=== PATIENT | female | born 1985 | race African-American/Black ===

== ENCOUNTER 2017-03-10 16:01 | Emergency (ER) | payer MEDICAID ==
[~2017-03-10] VITALS: Ht 162.6 cm; Wt 72.0 kg
[~2017-03-10 16:01] MED LIST: IBUP600 PO; IBUP800T23 PO; LORTA5 PO; ORPH100T PO
[2017-03-10 16:02] VITALS: BP 123/65; PULSE 69; RESP 20; TEMP 97.8; O2SAT 99
[2017-03-10] MEDS ORDERED: IBUP800T23 PO (16:27)
[2017-03-10] MEDS ORDERED: ZOFR4TAB PO (16:27)
[2017-03-10] MEDS ORDERED: CLIN1CAP6 PO (16:27)
[2017-03-10] MEDS ORDERED: ONDANSETRON ODT 4 MG TAB PO ONE (16:30)
[2017-03-10] MEDS ORDERED: KETOROLAC TROMETHAMINE 60 MG/2 ML (IM) VIAL IM ONE (16:30)
--- NOTE | 2017-03-10 16:32 | PD ---
HPI Chief Complaint: GI Complaint Time Seen by Provider: 16:20 Travel History International Travel<30 days: No Contact w/Intl Traveler<30days: No Traveled to known affect area: No History of Present Illness HPI 31-year-old female presents for evaluation of nausea and vomiting secondary to recent prescription medication. She's had dental pain for the past month. 3 days ago she was seen at an outside emergency room and prescribed doxycycline and tramadol which she has been taking together. She is experiencing nausea and vomiting whenever she takes these medications. She has avoided taking them today and she feels better, still mild nausea. No fevers, chills, abdominal pain, diarrhea. Last missed her period 5 days ago. No other complaints. PFSH Past Medical History Anemia: Yes Asthma: Yes Diminished Hearing: No Sickle Cell Disease: Yes (SICKLE CELL TRAIT) ?: Not Menopausal: No : 2 Para: 0 Miscarriage: 1 : 1 Social History Alcohol Use: No Tobacco Use: Yes (10/23 PPD) Substance Use: No Allergies-Medications (Allergen,Severity, Reaction): Coded Allergies: Penicillin (Verified Allergy, Severe, Hives, 03/10/17) Reported Meds & Prescriptions Reported Meds & Active Scripts Active Clindamycin (Clindamycin HCl) 300 Mg Cap 300 Mg PO TID Ibuprofen 800 Mg Tab 800 Mg PO Q6HR PRN Zofran (Ondansetron HCl) 4 Mg Tab 4 Mg PO Q6HR PRN Norflex (Orphenadrine Citrate) 100 Mg Silvestre 100 Mg PO BID [place] 5-325 mg (Hydrocodone-Acetaminophen 5-325 mg) 1 Tab 1 Tab PO Q6H PRN Motrin 600 Mg Tab (Ibuprofen) 600 Mg Tab 600 Mg PO Q6H PRN Ibuprofen 800 Mg Tab 800 Mg PO Q6H PRN Review of Systems Except as stated in HPI: all other systems reviewed are Neg Physical Exam Narrative GENERAL: Well-nourished female in no acute distress SKIN: Warm and dry. HEAD: Atraumatic. Normocephalic. EYES: Pupils equal and round. No scleral icterus. No injection or drainage. ENT: No nasal bleeding or discharge. Mucous membranes pink and moist. Dental decay noted to the left maxillary second molar. Tender to palpation. No gingival edema or facial edema. NECK: Trachea midline. No JVD. No lymphadenopathy. CARDIOVASCULAR: Regular rate and rhythm. No murmur appreciated. RESPIRATORY: No accessory muscle use. Clear to auscultation. Breath sounds equal bilaterally. Data Data Last Documented VS Vital Signs Date Time Temp Pulse Resp B/P Pulse Ox O2 Delivery O2 Flow Rate FiO2 03/10/17 16:02 97.8 69 20 123/65 99 Room Air Orders Ondansetron Odt (Zofran Odt) (03/10/17 16:30) Ketorolac Inj (Toradol Inj) (03/10/17 16:30) MDM Medical Decision Making Medical Screen Exam Complete: Yes Emergency Medical Condition: Yes Medical Record Reviewed: Yes Differential Diagnosis Adverse reaction to medication versus gastroenteritis versus dental caries Narrative Course The patient is having an adverse reaction to either doxycycline or tramadol, causing nausea and vomiting. She'll be given Toradol and Zofran here and discharged with clindamycin, ibuprofen, Zofran, recommend outpatient follow-up with a dentist. Diagnosis Primary Impression: Adverse drug reaction Qualified Code: T88.7XXA - Adverse drug reaction, initial encounter Additional Impression: Dental caries Additional Instructions: Quit Taking doxycycline and tramadol. clove oil on cotton balls Medications as prescribed. Follow up with a dentist for definitive therapy. Return for any emergent medical conditions. Med/Other Pt SpecificInfo: Prescription(s) given Scripts Clindamycin 300 Mg [id number] Mg PO TID #21 CAP Ref 0 Prov:Nicolle Márquez MD 03/10/17 Ibuprofen 800 Mg [id number] Mg PO Q6HR PRN (PAIN) #40 TAB Ref 0 Prov:Nicolle Márquez MD 03/10/17 Ondansetron (Zofran)4 Mg Tab4 Mg PO Q6HR PRN (NAUSEA OR VOMITING) #20 TAB Ref 0 Prov:Nicolle Márquez MD 03/10/17 Disposition: 01 DISCHARGE HOME Condition: Stable Chinmay Alvarado March 10, 2017 16:32
== END 2017-03-10 17:06 | disposition home or self-care (01) ==
LOC: NEPC 16:01
DX: R11.2 Nausea with vomiting, unspecified (principal); T50.905A Adverse effect of unspecified drugs, medicaments and biological substances, initial encounter; K02.9 Dental caries, unspecified
CPT/HCPCS: 96372; 99283; J1885

== ENCOUNTER 2017-09-12 13:38 | Emergency (ER) | payer MEDICAID ==
[~2017-09-12 13:38] MED LIST changes: +CLIN300C5 PO; +IBUP1TAB7 PO; +ZOFR4TAB PO
[2017-09-12 13:40] VITALS: BP 116/60; PULSE 81; RESP 12; TEMP 98.2; O2SAT 99
[2017-09-12] MEDS ORDERED: IBUPROFEN 600 MG TAB PO ONE (15:45)
[2017-09-12 16:07] LABS: BLOOD, URINE TRACE (NEG); COMMENT (UR) CULTURE INDICATED; CULTURE IF INDICATED CULTURE INDICATED; GLUCOSE,URINE NEG (NEG); KETONE, URINE NEG (NEG); MUCUS URINE FEW /lpf (OCC); NITRITE,URINE NEG (NEG); PH, URINE 5.5 (5.0-8.5); SQUAMOUS EPITHELIAL CELL URINE 6 /hpf (0-5); URINE COLOR YELLOW (YELLW/STRAW)
--- NOTE | 2017-09-12 16:21 | PD ---
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 She says she was on Clindamycin when this started, but she stopped taking it a week ago because she thought she was having an allergic reaction. She was originally given the Clindamycin for throat infection. She says her throat is better, but she noticed a white coating on her tongue as well as burning to her tongue and burning on urination. She denies abdominal pain, nausea, vomiting, fever or chills. PFSH Past Medical History Anemia: Yes Asthma: Yes Diminished Hearing: No Sickle Cell Disease: Yes (SICKLE CELL TRAIT) ?: Not LMP: 08/17/17 Menopausal: No : 2 Para: 0 Miscarriage: 1 : 1 Past Surgical History Surgical History: No Previous Surgery Social History Alcohol Use: No Tobacco Use: Yes Substance Use: No Allergies-Medications (Allergen,Severity, Reaction): Coded Allergies: penicillin G (Unverified Allergy, Severe, Hives, 06/05/17) Reported Meds & Prescriptions Reported Meds & Active Scripts Active Clindamycin (Clindamycin HCl) 300 Mg Cap 300 Mg PO TID Review of Systems Except as stated in HPI: all other systems reviewed are Neg General / Constitutional: No: Fever, Chills HENT: No: Headaches, Lightheadedness, Sore Throat Cardiovascular: No: Chest Pain or Discomfort Respiratory: No: Shortness of Breath Gastrointestinal: No: Nausea, Vomiting, Abdominal Pain Genitourinary: Positive: Dysuria, Discharge Skin: No Rash, No Change in Pigmentation Neurologic: No: Weakness, Dizziness Physical Exam Narrative GENERAL: Awake and alert, in no acute distress. SKIN: Focused skin assessment warm/dry. HEAD: Atraumatic. Normocephalic. EYES: Pupils equal and round. No scleral icterus. ENT: Mucous membranes pink and moist. NECK: Trachea midline. No JVD. CARDIOVASCULAR: Regular rate and rhythm. No murmur appreciated. RESPIRATORY: No accessory muscle use. Clear to auscultation. Breath sounds equal bilaterally. GASTROINTESTINAL: Abdomen soft, non-tender, nondistended. : Mild erythema of the cervix, scant discharge. No CMT. MUSCULOSKELETAL: No obvious deformities. No clubbing. No cyanosis. No edema. NEUROLOGICAL: Awake and alert. No obvious cranial nerve deficits. Motor grossly within normal limits. Normal speech. PSYCHIATRIC: Appropriate mood and affect; insight and judgment normal. Data Data Last Documented VS Vital Signs Date Time Temp Pulse Resp B/P (MAP) Pulse Ox O2 Delivery O2 Flow Rate FiO2 09/12/17 13:40 98.2 81 12 116/60 (78) 99 Orders Orders Urinalysis - C+S If Indicated (09/12/17 14:17) Ed Urine Pregnancytest Poc (09/12/17 14:17) Wet Prep Profile (09/12/17 14:17) Gc And Chlamydia Pcr (09/12/17 14:17) Ibuprofen (Motrin) (09/12/17 15:45) Urine Culture (09/12/17 14:20) Labs Laboratory Tests Test 09/12/17 14:20 Urine Color YELLOW Urine Turbidity HAZY Urine pH 5.5 Urine Specific [place] 1.022 Urine Protein NEG mg/dL Urine Glucose (UA) NEG mg/dL Urine Ketones NEG mg/dL Urine Occult Blood TRACE Urine Nitrite NEG Urine Bilirubin NEG Urine Urobilinogen LESS THAN 2.0 MG/DL Urine Leukocyte Esterase LARGE Urine RBC 8 /hpf Urine WBC 15 /hpf Urine Squamous Epithelial Cells 6 /hpf Urine Mucus FEW /lpf Microscopic Urinalysis Comment CULTURE INDICATED Clue Cells (Wet Prep) NONE SEEN Vaginal Trichomonas (Wet Prep) NONE SEEN Vaginal Yeast (Wet Prep) NONE SEEN MDM Medical Decision Making Medical Screen Exam Complete: Yes Emergency Medical Condition: Yes Medical Record Reviewed: Yes Differential Diagnosis UTI versus BV versus yeast vaginitis Narrative Course Patient is a 31-year-old female who comes in complaining of vaginal discharge and thrush. Exam shows no evidence of thrush on her tongue. Swab sent for wet prep and GC and chlamydia. Wet prep is negative. Urinalysis is positive for UTI. Given a prescription for Macrobid as well as Diflucan. Advised follow-up with a primary care doctor. Advised to return to the ED as needed for any worsening symptoms. Diagnosis Primary Impression: UTI (urinary tract infection) Qualified Codes: N30.00 - Acute cystitis without hematuria Patient Instructions: General Instructions, Urinary Tract Infection in Women ( ED), Vulvovaginal Candidiasis (ED) Additional Instructions: Finish all of your antibiotic. Then take the Diflucan. Follow-up with a primary care doctor. Return to the ED as needed for any worsening symptoms. Scripts Rrhwgbit-Rbjeurdiqpntijw-Qvavgaaly Liq (Magic Mouthwash Adult Liq) 120 Ml Susp 10 ML SWISH-SWAL ACHS for Mouth sores, #120 ML 0 Refills Each 5mL contains: Nystatin 200,000units, Diphenhydramine 4.25mg, Viscous Lidocaine 10mg, Noel syrup 0.8 mL Prov: Elaina Weiner MD 09/12/17 Fluconazole (Diflucan) 150 Mg Tab 150 MG PO ONCE for Infection, #1 TAB 0 Refills Prov: Elaina Weiner MD 09/12/17 Nitrofurantoin Monohydrate Macrocrystals (Macrobid) 100 Mg Capsule 100 MG PO BID for Infection for 5 Days, #10 CAP 0 Refills Prov: Elaina Weiner MD 09/12/17 Disposition: 01 DISCHARGE HOME Condition: Stable Elaina Weiner MD Sep 12, 2017 16:21
[2017-09-12] MEDS ORDERED: DIFL150T PO (16:31)
[2017-09-12] MEDS ORDERED: MACR100C2 PO (16:31)
[2017-09-12] MEDS ORDERED: MAGICADU2 SWISH-SWAL (16:31)
[2017-09-12 18:21] LABS: CHLAMYDIA PCR NOT DETECTED (NOT DETECT); NEISSERIA PCR NOT DETECTED (NOT DETECT)
== END 2017-09-12 16:36 | disposition home or self-care (01) ==
LOC: NEPD 13:38
DX: N30.00 Acute cystitis without hematuria (principal); B96.89 Other specified bacterial agents as the cause of diseases classified elsewhere; Z72.0 Tobacco use
CPT/HCPCS: 81001; 84703; 87086; 87210; 87491; 87591; 99284